=== PATIENT | female | born 1985 | race Caucasian/White ===

== ENCOUNTER 2017-04-15 10:42 | Day surgery (SDC) | payer BC ==
[2017-04-15] MEDS ORDERED: BRIDION 200MG/2ML IV ONE (10:43)
[2017-04-15] MEDS ORDERED: Versed 2 MG/2 ML Injection IV ONE (10:43)
[2017-04-15] MEDS ORDERED: DIPRIVAN 200 MG/20 ML IV ONE (10:43)
[2017-04-15] MEDS ORDERED: EXPAREL 266 MG/20 ML VIAL IJ ONE (10:43)
[2017-04-15] MEDS ORDERED: SUBLIMAZE 250 MCG/5 ML IV ONE (10:43)
[2017-04-15] MEDS ORDERED: Quelicin Fliptop 200 MG/10 ML IV ONE (10:43)
[2017-04-15] MEDS ORDERED: Zemuron 100 MG/10 ML IV ONE (10:43)
[2017-04-15] MEDS ORDERED: ANUSOL-HC 2.5% CREAM 30 GM ONE (11:09)
--- NOTE | 2017-04-15 11:10 | HP ---
DATE OF SURGERY: 04/15/2017 ADMISSION DIAGNOSIS: Symptomatic hemorrhoids. ANTICIPATED PROCEDURE: Hemorrhoidectomy. HISTORY OF PRESENT ILLNESS: The patient has symptomatic moderate to severe internal and external hemorrhoids. PAST MEDICAL HISTORY: ALLERGIES: NONE. MEDICATIONS: None. PAST SURGICAL HISTORY: None. SOCIAL HISTORY: Negative. FAMILY HISTORY: Negative. REVIEW OF SYSTEMS: Negative. PHYSICAL EXAMINATION: VITAL SIGNS: Normal. CHEST: Clear. COR: Regular. ABDOMEN: No palpable organomegaly or mass. : Large bulging purple painful hemorrhoid. IMPRESSION: Symptomatic hemorrhoids and no recent medical care. PLAN: Surgical excision.
[2017-04-15] MEDS ORDERED: Lactated Ringers 1,000 ML IV SCH (11:30)
[2017-04-15] MEDS ORDERED: MEFOXIN 2 GM PREMIX** 2 GM/50 ML ML IV SCH (12:00)
[2017-04-15] MEDS ORDERED: SUBLIMAZE 100 MCG/2 ML ONE (15:17)
[2017-04-15] MEDS ORDERED: NORCO 7.5/325 MG TAB ONE (16:23)
[2017-04-15] MEDS ORDERED: NORCO 7.5/325 MG TAB PO PRN (16:33)
[2017-04-15 16:36] VITALS: O2SAT 100
[2017-04-15 17:21] VITALS: BP 110/64; PULSE 67
--- NOTE | 2017-04-16 07:45 | OP ---
SURGERY DATE/TIME: 04/15/2017 1408 PREOPERATIVE DIAGNOSIS: Hemorrhoids requiring medical care. POSTOPERATIVE DIAGNOSIS: Hemorrhoids requiring medical care. PROCEDURES: 1) Internal hemorrhoidectomy x3. 2) External hemorrhoidectomy x3. 3) Internal banding x1. SURGEON: Ethan Madden M.D. ANESTHESIA: General. COMPLICATIONS: None. CONDITION: Stable. INDICATION: A patient with symptomatic hemorrhoids since childbirth. It has gotten progressively worse and now they are not responding to any medical treatment. DESCRIPTION OF PROCEDURE: She was taken to surgery. Lithotomy. Routine prep and drape. Five, seven and eleven. Internal and externals were excised and secured with 2-0 chromic under and over sutures. Distal internal hemorrhoid was banded for a total of seven hemorrhoids. Anus still allowed one and a half fingertip. The patient tolerated the procedure satisfactorily. Long lasting Marcaine was placed 20 cc. Findings discussed with the family in the waiting room.
== END 2017-04-15 17:15 | disposition home or self-care (01) ==
LOC: SDC 10:42
PROVIDERS: ATTEND Surgery
PROC: 06BY4ZC Excision of Hemorrhoidal Plexus, Percutaneous Endoscopic Approach (ICD-10-PCS; principal; 2017-04-15)
PROC: 06LY4CC Occlusion of Hemorrhoidal Plexus with Extraluminal Device, Percutaneous Endoscopic Approach (ICD-10-PCS; 2017-04-15)
DX: K64.8 Other hemorrhoids (principal); K64.4 Residual hemorrhoidal skin tags
CPT/HCPCS: 00902; 36415; 88304; J0330; J0694; J2250; J2704; J3010; A9270-GY